=== PATIENT | male | born 1985 | race Caucasian/White ===

== ENCOUNTER 2019-04-13 11:12 | Emergency (ER) | payer BC ==
[2019-04-13 12:20] LABS: #Basophils 0.1 thou/uL (0.0-0.2); #Eosinphils 0.1 thou/uL (0.0-0.7); #Lymphocytes 1.3 thou/uL (1.20-3.40); #Monocytes 0.8 thou/uL (0.11-0.59); #Neutrophils 9.2 thou/uL (1.40-6.50); %Basophils 0.8 % (0.0-1.0); %Eosinophils 0.5 % (0.0-10.0); %Lymphocytes 11.3 % (21.0-51.0); %Monocytes 6.6 % (0.0-10.0); %Neutrophils 80.8 % (42.0-75.0); Hemoglobin 14.7 g/dL (14.0-18.0); Mean Corpuscular HGB CONC 35.7 g/dL (32.0-36.0); Mean Corpuscular Hemoglobin 32.5 pg (27.0-31.0); Mean Corpuscular Volume 91.2 fL (78.0-98.0); Mean Platelet Volume 7.4 fL (7.4-10.4); Platelet Count 210 thou/uL (130-400); RBC Distribution Width 10.7 % (11.5-14.5); Red Blood Cell (RBC) Count 4.52 mill/uL (4.70-6.10); White Blood Cell (WBC) Count 11.4 thou/uL (4.8-10.8)
[2019-04-13 12:33] LABS: ALT (SGPT) 17 U/L (8-55); AST (SGOT) 18 U/L (5-34); Albumin 4.7 g/dL (3.5-5.0); Alkaline Phosphatase 50 U/L (40-150); Anion Gap 14 mmol/L (10-20); BUN (Urea Nitrogen) 13 mg/dL (8.9-20.6); Bilirubin, Total 0.8 mg/dL (0.2-1.2); Calc. Creatinine Clearance 0 mL/min (70-130); Calcium 10.3 mg/dL (7.8-10.44); Carbon Dioxide 26 mmol/L (22-29); Chloride 105 mmol/L (98-107); Estimated GFR-MDRD Greater than 90; Globulin 2.9 g/dL (2.4-3.5); Glucose 90 mg/dL (70-105); Potassium 4.1 mmol/L (3.5-5.1); Protein, Total 7.6 g/dL (6.0-8.3); Sodium 141 mmol/L (136-145)
--- NOTE | 2019-04-13 12:51 | CT ---
EXAM: Brain CTWithout contrast: HISTORY: Headache COMPARISON: None FINDINGS: No focal mass or midline shift. No intra or extra-axial hemorrhage. Sinus mucosal disease including the frontal, ethmoid, maxillary, and sphenoid sinus. The mastoids are clear. IMPRESSION: No mass or bleed or other significant acute intracranial process. Extensive sinus mucosal disease.
== END 2019-04-13 13:10 | disposition home or self-care (01) ==
LOC: SCSER 11:12
DX: R55 Syncope and collapse (principal); H53.8 Other visual disturbances
CPT/HCPCS: 70450; 80053; 85025; 93005; 96360